=== PATIENT | female | born 1955 | race Caucasian/White ===

== ENCOUNTER → 2024-02-18 07:48 | Outpatient (CLI) | payer MEDICARE, SELFPAY ==
[2024-02-18 08:58] LABS: Add Manual Diff / Slide Review NO; Basophils Absolute Auto 100 /uL (0-100); Basophils Percent Auto 1.4 % (0-2); Eosinophils Absolute Auto 200 /uL (0-450); Eosinophils Percent Auto 5.2 % (2-4); Hematocrit 39.3 % (36-46); Hemoglobin 13.4 g/dL (12.0-16.0); Lymphocytes Absolute Auto 1600 /uL (1100-4500); Lymphocytes Percent Auto 39.7 % (25-40); Mean Corpuscular Hemoglobin 34.1 PG (26-34); Mean Corpuscular Volume 100.2 fL (80-100); Monocytes Absolute Auto 300 /uL (0-900); Neutrophils Absolute Auto 1900 /uL (1500-7000); Neutrophils Percent Auto 46.7 % (50-75); Platelet Count 212 X10^3/uL (150-400); Red Blood Cell Count 3.93 X10^6/uL (4.0-5.2); Red Cell Distribution Width 12.8 % (11.6-14.8)
[2024-02-18 09:21] LABS: Alanine Aminotransferase 15 IU/L (<35); Albumin 3.7 g/dL (3.5-5.0); Albumin Globulin Ratio 1.2 (1.0-2.8); Alkaline Phosphatase 50 U/L (38-126); Aspartate Aminotransferase 29 IU/L (14-36); BUN Creatinine Ratio 15.7 (6-22); Bilirubin Total 0.6 mg/dL (0.2-1.3); Blood Urea Nitrogen 11 mg/dL (7-17); Calcium 9.1 mg/dL (8.4-10.2); Carbon Dioxide 28 mmol/L (22-32); Chloride 108 mmol/L (98-107); Cholesterol 175 mg/dL (140-199); Estimated Glomerular Filt Rate > 60 mL/min (>60); Globulin 3.1 g/dL (1.7-4.1); Glucose 80 mg/dL (80-110); HDL Cholesterol 58 mg/dL (40-60); HEMOLYSIS < 15 (0-50); LDL Cholesterol Calculated 95 mg/dL (<100); Potassium 4.1 mmol/L (3.4-5.1); Sodium 138 mmol/L (137-145); Total Protein 6.8 g/dL (6.3-8.2); Triglycerides 110 mg/dL (35-150)
[2024-02-18 09:39] LABS: Free T3, Triiodothyronine Free 2.98 pg/mL (2.77-5.27); Free T4, Direct Thyroxine 0.99 ng/dL (0.78-2.19)
[2024-02-18 09:53] LABS: Thyroid Stimulating Hormone 2.02 uIU/mL (0.47-4.68)
[2024-02-18 10:16] LABS: Vitamin B12 947 pg/mL (239-931)
[2024-02-23 10:30] LABS: Vitamin B6 51.6 ug/L (3.4-65.2)
== END ==
PROVIDERS: PCP Family Medicine; Referring Provider Family Medicine; Visit Provider Family Medicine
DX: E03.8 Other specified hypothyroidism (principal); E06.3 Autoimmune thyroiditis; E53.1 Pyridoxine deficiency; D51.0 Vitamin B12 deficiency anemia due to intrinsic factor deficiency; E78.5 Hyperlipidemia, unspecified
CPT/HCPCS: 36415; 80053; 80061; 82607; 84207; 84439; 84443; 84481; 85025

== ENCOUNTER → 2024-09-14 09:16 | Outpatient (CLI) | payer MEDICARE, SELFPAY ==
[2024-09-14 12:32] LABS: Alanine Aminotransferase 15 IU/L (<35); Albumin 3.8 g/dL (3.5-5.0); Albumin Globulin Ratio 1.3 (1.0-2.8); Alkaline Phosphatase 67 U/L (38-126); Aspartate Aminotransferase 28 IU/L (14-36); BUN Creatinine Ratio 13.7 (6-22); Bilirubin Total 0.3 mg/dL (0.2-1.3); Blood Urea Nitrogen 10 mg/dL (7-17); Calcium 9.3 mg/dL (8.4-10.2); Carbon Dioxide 30 mmol/L (22-32); Chloride 102 mmol/L (98-107); Estimated Glomerular Filt Rate > 60 mL/min (>60); Globulin 2.9 g/dL (1.7-4.1); Glucose 88 mg/dL (80-110); HEMOLYSIS < 15 (0-50); Potassium 4.3 mmol/L (3.4-5.1); Sodium 136 mmol/L (137-145); Total Protein 6.7 g/dL (6.3-8.2)
[2024-09-14 13:08] LABS: Free T3, Triiodothyronine Free 3.08 pg/mL (2.77-5.27); Free T4, Direct Thyroxine 1.08 ng/dL (0.78-2.19)
== END ==
PROVIDERS: PCP Family Medicine; Referring Provider Family Medicine; Visit Provider Family Medicine
DX: E03.8 Other specified hypothyroidism (principal); E06.3 Autoimmune thyroiditis
CPT/HCPCS: 36415; 80053; 84439; 84443; 84481

== ENCOUNTER 2024-11-10 13:46 | Emergency (ER) | payer MEDICARE, SELFPAY ==
[2024-11-10 13:49] VITALS: BP 122/57; PULSE 76; RESP 16; TEMP 36.7; O2SAT 98; BMI 23.3
--- NOTE | 2024-11-10 13:59 | DI.CT.S_ITS ---
PROCEDURE: CT ANGIO HEAD AND NECK INDICATIONS: decrease B/L upper extrem fine motor, 2 weeks tremors TECHNIQUE: After the administration of intravenous contrast, 1 mm thick sections acquired from the aortic arch through the [place] of [place]. 3-dimensional bhggqsl-uxupbsigh-ehkgpakdiz (MIP) and/or volume rendering reformats were acquired of the central intracranial vasculature and neck separately. For radiation dose reduction, the following was used: automated exposure control, adjustment of mA and/or kV according to patient size. COMPARISON: [facility], CT, CT HEAD/BRAIN WO CON, 11/10/2024, 16:15. FINDINGS: Image quality: Diagnostic. BRAIN: CSF spaces: Ventricles are normal in size and shape. Basal cisterns are patent. No extra-axial fluid collections. Brain: No significant abnormality of the brain can be seen. Skull and face: Calvarium and facial bones appear intact, without suspicious lesions. Orbits appear normal. Sinuses: Sinuses and mastoids are clear. HEAD CT ANGIOGRAPHY: Anterior circulation: Intracranial internal carotid arteries are normal in size and flow. The flow within the paired anterior cerebral arteries is normal and symmetric. The flow within the middle cerebral arteries is normal and symmetric. The anterior communicating artery is seen. No aneurysms are seen. Posterior circulation: Visualized portions of the vertebral arteries demonstrate normal caliber, and join to form a normal appearing basilar artery. Flow within the posterior cerebral arteries is normal and symmetric. No aneurysms are seen. NECK CT ANGIOGRAPHY: Carotid system: The great vessels demonstrate a conventional anatomy as they arise from the aortic arch. The origins of the common carotid arteries appear patent. The common carotid arteries demonstrate normal caliber and courses. The bifurcation regions are both widely patent. The internal carotid arteries demonstrate normal calibers and courses. Posterior circulation: The origins of the vertebral arteries both appear widely patent. The more superior extracranial portions of both vertebral arteries also demonstrate normal courses and calibers. They join to form a normal appearing basilar artery. Soft tissues: Visualized neck soft tissues demonstrate no suspicious abnormalities. Bones: No suspicious bony lesions. Visualized cervical spine appears normally aligned. IMPRESSION: No significant intracranial arterial abnormality is seen. No significant abnormality is seen within the arteries of the neck. Any quantitative measurements of stenosis were performed using NASCET criteria. Dictated by: Fer Drummond M.D. on 11/10/2024 at 17:12 Approved by: Fer Drummond M.D. on 11/10/2024 at 17:14
--- NOTE | 2024-11-10 13:59 | DI.CT.S_ITS ---
PROCEDURE: CT HEAD/BRAIN WO CON INDICATIONS: decrease B/L upper extrem fine motor, 2 weeks tremors TECHNIQUE: Noncontrast 4.5 mm thick angled axial sections acquired from the foramen magnum to the vertex, with coronal and sagittal reformats. For radiation dose reduction, the following was used: automated exposure control, adjustment of mA and/or kV according to patient size. COMPARISON: None. FINDINGS: Image quality: Diagnostic. CSF spaces: Basal cisterns are patent. No extra-axial fluid collections. The ventricles are symmetric in size and shape. Brain: No intracranial bleeds or masses. There is cerebral volume loss for age, with resultant ventricular and sulcal prominence. There are periventricular and deep white matter chronic small vessel ischemic changes. There is intracranial internal carotid artery atherosclerosis. Skull and face: Calvarium and visualized facial bones appear intact, without suspicious lesions. Sinuses: Visualized sinuses and mastoids are clear. IMPRESSION: No acute intracranial pathology. Dictated by: Fer Drummond M.D. on 11/10/2024 at 17:15 Approved by: Fer Drummond M.D. on 11/10/2024 at 17:15
--- NOTE | 2024-11-10 15:26 | ED_ITS ---
HPI - Neuro Symptoms/Deficit <EMILY Hinson Last Filed: 11/10/24 19:25> General Chief Complaint: Neuro Symptoms/Deficit Stated Complaint: sent by [facility] for CT Time Seen by Provider: 11/10/24 15:26 History of Present Illness HPI Narrative: Ms. Miller is a very pleasant 69-year-old female with a past medical history of pernicious anemia, shingles neuropathy, asthma who presents to the emergency department for 2.5 weeks of bilateral hand tremors. Patient states about 2 and half weeks ago she slowly noticed the development of active bilateral hand tremors present when attempting to use fine motor skills while knitting or other tasks. There is no pain or decreased sensation associated with these tremors. She states that earlier this week on Wednesday and Wednesday she did have this sensation of dizziness which she describes as feeling sick and off balance however she states she does have dizziness rather intermittently for a long time. She did have a mild headache during this time as well which is abnormal for her. Both of the symptoms resolved earlier this week. She went to the walk-in clinic who sent her to the ER for further evaluation. She denies visual disturbance, chest pain, shortness of breath, fevers, chills, nausea, vomiting, diarrhea, recent travel, dysuria, hematuria, new medication or other lifestyle change 2.5 weeks ago. She does not use any drugs or alcohol. Her contributes to the history. On Anticoagulants: No Related Data Home Medications Medication Instructions Recorded Confirmed budesonide-formoterol HFA 80 inhalation 11/10/24 11/10/24 mcg-4.5 mcg/actuation aerosol inhaler (Symbicort) levothyroxine 88 mcg tablet mcg PO 11/10/24 11/10/24 liothyronine 5 mcg tablet 5 mcg PO DAILY 11/10/24 11/10/24 raloxifene 60 mg tablet 60 mg PO DAILY 11/10/24 11/10/24 Review of Systems <EMILY Hinson Last Filed: 11/10/24 19:25> Review of Systems ROS Unobtainable: All systems reviewed & are unremarkable except as noted in HPI and below Hematologic/Lymphatic On Anticoagulants: No Exam <Cira Wylie PA-C - Last Filed: 11/10/24 19:25> Narrative Exam Narrative: GENERAL: 69 year old patient appears stated age. Well-developed patient, in no acute distress. HEAD: Atraumatic. Normocephalic. EYES: PERRL. Extraocular motions intact. No scleral icterus. No injection or drainage. ENT: Nose without bleeding, purulent drainage. NECK: Trachea midline. Cervical ROM intact. No pain with range of motion of cervical spine. CARDIOVASCULAR: Regular rate and rhythm. RESPIRATORY: ?Nonlabored respirations. ?Speaking in clear, full sentences. ?Clear to auscultation. Breath sounds equal bilaterally. No wheezes, rales, or rhonchi. ? GASTROINTESTINAL: Abdomen soft, non-tender, nondistended. EXTREMITIES: No edema or joint tenderness. BACK: Nontender without deformity or crepitance. No flank tenderness. NEURO: AOx3. ?Clear speech. ?No focal neurologic deficits. Bilateral hand tremor present only with active use of fine motor skills of both hands such as opening a pill container. Sensation intact throughout face and body and symmetric. Bilateral upper and lower extremity strength intact and symmetric. Yvlmin-oxuh-yorqvy, rapid alternating movements, heel-mariee all normal. Steady gait. SKIN: No rash or erythema of visible areas Initial Vital Signs Initial Vital Signs: Vital Signs Temperature 98.0 F 11/10/24 13:49 Pulse Rate 76 11/10/24 13:49 Respiratory Rate 16 11/10/24 13:49 Blood Pressure 122/57 L 11/10/24 13:49 Pulse Oximetry 98 11/10/24 13:49 Oxygen Delivery Method Room Air 11/10/24 13:49 <Glenn Grover MD - Last Filed: 11/10/24 20:07> Initial Vital Signs Initial Vital Signs: Vital Signs Temperature 98.0 F 11/10/24 13:49 Pulse Rate 76 11/10/24 13:49 Respiratory Rate 16 11/10/24 13:49 Blood Pressure 122/57 L 11/10/24 13:49 Pulse Oximetry 98 11/10/24 13:49 Oxygen Delivery Method Room Air 11/10/24 13:49 Course <Cira Wylie PA-C - Last Filed: 11/10/24 19:25> Orders Ordered: ED Orders 11/10/24 13:59 CT angio head and neck Stat CT head/brain wo con Stat 11/10/24 14:30 Complete Blood Count AUTO DIFF Stat Comprehensive Metabolic Panel Stat Magnesium Stat PTT Partial Thromboplastin [place] Stat Prothrombin Time INR Stat TSH [Thyroid Stimulating Hormone] Stat Vitamin B12 Stat 11/10/24 15:45 Urinalysis and Microscopic Stat Vital Signs Vital signs: Vital Signs - 8 hr 11/10/24 13:49 11/10/24 17:31 11/10/24 18:40 Temperature 98.0 F 98.2 F Pulse Rate 76 67 63 Respiratory Rate 16 16 16 Blood Pressure 122/57 L 108/59 L 105/55 L Pulse Oximetry 98 98 98 Oxygen Delivery Method Room Air Room Air Room Air <Glenn Grover MD - Last Filed: 11/10/24 20:07> Orders Ordered: ED Orders 11/10/24 13:59 CT angio head and neck Stat CT head/brain wo con Stat 11/10/24 14:30 Complete Blood Count AUTO DIFF Stat Comprehensive Metabolic Panel Stat Magnesium Stat PTT Partial Thromboplastin Zen[place] Stat Prothrombin Time INR Stat TSH [Thyroid Stimulating Hormone] Stat Vitamin B12 Stat 11/10/24 15:45 Urinalysis and Microscopic Stat Vital Signs Vital signs: Vital Signs - 8 hr 11/10/24 13:49 11/10/24 17:31 11/10/24 18:40 Temperature 98.0 F 98.2 F Pulse Rate 76 67 63 Respiratory Rate 16 16 16 Blood Pressure 122/57 L 108/59 L 105/55 L Pulse Oximetry 98 98 98 Oxygen Delivery Method Room Air Room Air Room Air MDM - Neuro Symptoms/Deficit <Cira Wylie PA-C - Last Filed: 11/10/24 19:25> Medical Records Attestation: I reviewed the patient's medical records. Lab Data 11/10/24 14:30 11/10/24 14:30 Labs: Lab Results 11/10/24 11/10/24 Range/Units 14:30 15:45 WBC 5.6 (4.5-11.0) X10^3/uL RBC 4.00 (4.0-5.2) X10^6/uL Hgb 13.6 (12.0-16.0) g/dL Hct 40.4 (36-46) % MCV 101.0 H (80-100) fL MCH 34.0 (26-34) PG MCHC 33.7 (30-36) % RDW 12.5 (11.6-14.8) % Plt Count 217 (150-400) X10^3/uL Neut % (Auto) 58.8 (50-75) % Lymph % (Auto) 27.9 (25-40) % [place] % (Auto) 7.6 (3-14) % Eos % (Auto) 4.6 H (2-4) % Baso % (Auto) 1.1 (0-2) % Neut # (Auto) 3300 (0259-5331) /uL Lymph # (Auto) 1600 (5602-5187) /uL [place] # (Auto) 400 (0-900) /uL Eos # (Auto) 300 (0-450) /uL Baso # (Auto) 100 (0-100) /uL PT 11.4 (9.4-12.5) SECONDS INR 1.0 (0.9-1.3) APTT 31 (25.1-36.5) SECONDS Sodium 134 L (137-145) mmol/L Potassium 4.2 (3.4-5.1) mmol/L Chloride 100 (98-107) mmol/L Carbon Dioxide 28 (22-32) mmol/L BUN 14 (7-17) mg/dL Creatinine 0.69 (0.52-1.04) mg/dL Estimated GFR > 60 (>60) mL/min BUN/Creatinine Ratio 20.3 (6-22) Glucose 102 (80-110) mg/dL Calcium 9.3 (8.4-10.2) mg/dL Magnesium 2.1 (1.6-2.3) mg/dL Total Bilirubin 0.3 (0.2-1.3) mg/dL AST 36 (14-36) IU/L ALT 19 (<35) IU/L Alkaline Phosphatase 77 (38-126) U/L Total Protein 7.3 (6.3-8.2) g/dL Albumin 4.2 (3.5-5.0) g/dL Globulin 3.1 (1.7-4.1) g/dL Albumin/Globulin Ratio 1.4 (1.0-2.8) Vitamin B12 880 (239-931) pg/mL TSH 1.46 (0.47-4.68) uIU/mL Urine Color Yellow Urine Appearance Clear Urine pH 8.0 (4.5-8.0) Ur Specific [place] 1.010 (1.000-1.035) Urine Protein Negative (Negative) Urine Glucose (UA) Negative (Negative) g/dL Urine Ketones Negative (NEGATIVE) Urine Occult Blood Negative (Negative) Urine Nitrate Negative (Negative) Urine Bilirubin Negative (NEGATIVE) Urine Urobilinogen 0.2 (0.2) E.U./dL Ur Leukocyte Esterase Negative (NEGATIVE) Urine RBC None seen (0-5/HPF) Urine WBC None seen (0-5/HPF) Ur Squamous Epith Cells None seen (0-5/HPF) Amorphous Sediment 1+ Urine Bacteria None seen (None) Ur Culture Indicated? Cult not indicated Vol Urine Centrifuged 10ml (spun) Imaging Data CT scan - head: Radiologist's Impression: PROCEDURE: CT HEAD/BRAIN WO CON INDICATIONS: decrease B/L upper extrem fine motor, 2 weeks tremors TECHNIQUE: Noncontrast 4.5 mm thick angled axial sections acquired from the foramen magnum to the vertex, with coronal and sagittal reformats. For radiation dose reduction, the following was used: automated exposure control, adjustment of mA and/or kV according to patient size. COMPARISON: None. FINDINGS: Image quality: Diagnostic. CSF spaces: Basal cisterns are patent. No extra-axial fluid collections. The ventricles are symmetric in size and shape. Brain: No intracranial bleeds or masses. There is cerebral volume loss for age, with resultant ventricular and sulcal prominence. There are periventricular and deep white matter chronic small vessel ischemic changes. There is intracranial internal carotid artery atherosclerosis. Skull and face: Calvarium and visualized facial bones appear intact, without suspicious lesions. Sinuses: Visualized sinuses and mastoids are clear. IMPRESSION: No acute intracranial pathology. Head/Neck CTA: Radiologist's Impression: PROCEDURE: CT ANGIO HEAD AND NECK INDICATIONS: decrease B/L upper extrem fine motor, 2 weeks tremors TECHNIQUE: After the administration of intravenous contrast, 1 mm thick sections acquired from the aortic arch through the [place] of [place]. 3-dimensional qfbcqaw-cmgnlthzj-brlislklyt (MIP) and/or volume rendering reformats were acquired of the central intracranial vasculature and neck separately. For radiation dose reduction, the following was used: automated exposure control, adjustment of mA and/or kV according to patient size. COMPARISON: [facility], CT, CT HEAD/BRAIN WO CON, 11/10/2024, 16:15. FINDINGS: Image quality: Diagnostic. BRAIN: CSF spaces: Ventricles are normal in size and shape. Basal cisterns are patent. No extra-axial fluid collections. Brain: No significant abnormality of the brain can be seen. Skull and face: Calvarium and facial bones appear intact, without suspicious lesions. Orbits appear normal. Sinuses: Sinuses and mastoids are clear. HEAD CT ANGIOGRAPHY: Anterior circulation: Intracranial internal carotid arteries are normal in size and flow. The flow within the paired anterior cerebral arteries is normal and symmetric. The flow within the middle cerebral arteries is normal and symmetric. The anterior communicating artery is seen. No aneurysms are seen. Posterior circulation: Visualized portions of the vertebral arteries demonstrate normal caliber, and join to form a normal appearing basilar artery. Flow within the posterior cerebral arteries is normal and symmetric. No aneurysms are seen. NECK CT ANGIOGRAPHY: Carotid system: The great vessels demonstrate a conventional anatomy as they arise from the aortic arch. The origins of the common carotid arteries appear patent. The common carotid arteries demonstrate normal caliber and courses. The bifurcation regions are both widely patent. The internal carotid arteries demonstrate normal calibers and courses. Posterior circulation: The origins of the vertebral arteries both appear widely patent. The more superior extracranial portions of both vertebral arteries also demonstrate normal courses and calibers. They join to form a normal appearing basilar artery. Soft tissues: Visualized neck soft tissues demonstrate no suspicious abnormalities. Bones: No suspicious bony lesions. Visualized cervical spine appears normally aligned. IMPRESSION: No significant intracranial arterial abnormality is seen. No significant abnormality is seen within the arteries of the neck. [facility] Narrative Medical decision making narrative: 69-year-old female with a past medical history of pernicious anemia, shingles neuropathy, asthma who presents to the emergency department for 2.5 weeks of bilateral hand tremors. Her contributes to the history. Differential diagnosis includes but is not limited to essential tremor, electrolyte abnormality, anemia, neuropathy, Parkinson's disease, neurologic disease, intracranial mass, etc. On exam the patient is in no acute distress, nontoxic appearing, vital signs appropriate. She is very pleasant and denies any pain. She has mild tremor of bilateral hands only with active use of hands/fine motor skills. This has been going on for about 2 and half weeks. She has no focal neurologic deficits, steady gait, negative cerebellar exam. Case was discussed with the attending physician. We will obtain CT head without contrast and CTA head and neck with IV contrast to rule out acute intracranial abnormality. We will check baseline labs to rule out electrolyte abnormality, UTI, etc. Labs reveal normal WBC count 5.6, hemoglobin 13.6 hematocrit 40.4. Sodium mildly decreased at 134, potassium 4.2 chloride 100. BUN 14 creatinine 0.69. Vitamin B12 normal at 880. Head CT shows no acute intracranial pathology. Head/neck CTA reveals no significant intracranial arterial abnormality. No significant abnormality seen with the arteries of the neck. Advised patient follow up with outpatient Neurology for further evaluation of hand tremor. No emergent etiology identified at this time. Case discussed with the attending ER physician who was available for consultation. Patient verbalized understanding of all information and is agreeable to the plan. Advised prompt follow up with PCP as she may need Neurology referral. Patient her verbalized understanding of all information and are stable for discharge home. Return precautions discussed. <Glenn Grover MD - Last Filed: 11/10/24 20:07> Lab Data Labs: Lab Results 11/10/24 11/10/24 Range/Units 14:30 15:45 WBC 5.6 (4.5-11.0) X10^3/uL RBC 4.00 (4.0-5.2) X10^6/uL Hgb 13.6 (12.0-16.0) g/dL Hct 40.4 (36-46) % MCV 101.0 H (80-100) fL MCH 34.0 (26-34) PG MCHC 33.7 (30-36) % RDW 12.5 (11.6-14.8) % Plt Count 217 (150-400) X10^3/uL Neut % (Auto) 58.8 (50-75) % Lymph % (Auto) 27.9 (25-40) % [place] % (Auto) 7.6 (3-14) % Eos % (Auto) 4.6 H (2-4) % Baso % (Auto) 1.1 (0-2) % Neut # (Auto) 3300 (3491-5977) /uL Lymph # (Auto) 1600 (5697-4549) /uL [place] # (Auto) 400 (0-900) /uL Eos # (Auto) 300 (0-450) /uL Baso # (Auto) 100 (0-100) /uL PT 11.4 (9.4-12.5) SECONDS INR 1.0 (0.9-1.3) APTT 31 (25.1-36.5) SECONDS Sodium 134 L (137-145) mmol/L Potassium 4.2 (3.4-5.1) mmol/L Chloride 100 (98-107) mmol/L Carbon Dioxide 28 (22-32) mmol/L BUN 14 (7-17) mg/dL Creatinine 0.69 (0.52-1.04) mg/dL Estimated GFR > 60 (>60) mL/min BUN/Creatinine Ratio 20.3 (6-22) Glucose 102 (80-110) mg/dL Calcium 9.3 (8.4-10.2) mg/dL Magnesium 2.1 (1.6-2.3) mg/dL Total Bilirubin 0.3 (0.2-1.3) mg/dL AST 36 (14-36) IU/L ALT 19 (<35) IU/L Alkaline Phosphatase 77 (38-126) U/L Total Protein 7.3 (6.3-8.2) g/dL Albumin 4.2 (3.5-5.0) g/dL Globulin 3.1 (1.7-4.1) g/dL Albumin/Globulin Ratio 1.4 (1.0-2.8) Vitamin B12 880 (239-931) pg/mL TSH 1.46 (0.47-4.68) uIU/mL Urine Color Yellow Urine Appearance Clear Urine pH 8.0 (4.5-8.0) Ur Specific [place] 1.010 (1.000-1.035) Urine Protein Negative (Negative) Urine Glucose (UA) Negative (Negative) g/dL Urine Ketones Negative (NEGATIVE) Urine Occult Blood Negative (Negative) Urine Nitrate Negative (Negative) Urine Bilirubin Negative (NEGATIVE) Urine Urobilinogen 0.2 (0.2) E.U./dL Ur Leukocyte Esterase Negative (NEGATIVE) Urine RBC None seen (0-5/HPF) Urine WBC None seen (0-5/HPF) Ur Squamous Epith Cells None seen (0-5/HPF) Amorphous Sediment 1+ Urine Bacteria None seen (None) Ur Culture Indicated? Cult not indicated Vol Urine Centrifuged 10ml (spun) Discharge Plan Departure Patient Disposition: Home Clinical Impression: Tremor of both hands Instructions: DI for Benign Essential Tremor Activity Restrictions/Additional Instructions: Dear Ms. Miller, Today you were evaluated for a tremor of both of your hands for the last 2.5 weeks. Labs overall reassuring with no anemia, no abnormal electrolytes, and CT imaging of your head and head and neck vessels show no acute emergent abnormalities. Please follow up with a neurologist for further evaluation. You may call [facility] at [phone] the schedule an appointment with a neurologist. I have provided you with patient information on benign essential tremor however this is not your official diagnosis, this is just for information. You need to be formally evaluated and diagnosed by a neurologist for the cause of your hand tremor. Please follow up with your primary care doctor within the next 2-3 days for ER follow-up. (If you do not have a PCP you can call [phone]. ?to schedule an appointment with an [facility] Primary Care Provider) IF YOU DEVELOP ANY NEW OR WORSENING SYMPTOMS, RETURN TO THE ER! Please read the attached instructions, they highlight more specific treatments and interventions for you at home. Thank you for letting me participate in your care, Cira Wylie PA-C Prescriptions: No Action levothyroxine 88 mcg tablet PO liothyronine 5 mcg tablet 5 mcg PO DAILY raloxifene 60 mg tablet 60 mg PO DAILY budesonide-formoterol [Symbicort] 80-4.5 mcg/actuation HFA aerosol inhaler inhalation Referrals: Deann Concepcion MD [Primary Care Provider] - Stand Alone Forms: Patient Portal/API/Survey ED Sign-out <Glenn Grover MD - Last Filed: 11/10/24 20:07> Cosign ED Attending Klaus Attestation: I was immediately available in the department for consultation. This documentation has been reviewed and I agree with assessment and plan. Supervised by Glenn Grover MD
[2024-11-10 15:53] LABS: Add Manual Diff / Slide Review NO; Basophils Absolute Auto 100 /uL (0-100); Basophils Percent Auto 1.1 % (0-2); Eosinophils Absolute Auto 300 /uL (0-450); Eosinophils Percent Auto 4.6 % (2-4); Hematocrit 40.4 % (36-46); Hemoglobin 13.6 g/dL (12.0-16.0); Lymphocytes Absolute Auto 1600 /uL (1100-4500); Lymphocytes Percent Auto 27.9 % (25-40); Mean Corpuscular HGB Conc 33.7 % (30-36); Monocytes Absolute Auto 400 /uL (0-900); Monocytes Percent Auto 7.6 % (3-14); Neutrophils Absolute Auto 3300 /uL (1500-7000); Neutrophils Percent Auto 58.8 % (50-75); Platelet Count 217 X10^3/uL (150-400); Red Cell Distribution Width 12.5 % (11.6-14.8); White Blood Cell Count 5.6 X10^3/uL (4.5-11.0)
[2024-11-10 15:54] LABS: Prothrombin Time 11.4 SECONDS (9.4-12.5)
[2024-11-10 15:56] LABS: PTT Partial Thromboplastin Tim 31 SECONDS (25.1-36.5)
[2024-11-10 16:07] LABS: Alanine Aminotransferase 19 IU/L (<35); Albumin 4.2 g/dL (3.5-5.0); Albumin Globulin Ratio 1.4 (1.0-2.8); Alkaline Phosphatase 77 U/L (38-126); Aspartate Aminotransferase 36 IU/L (14-36); BUN Creatinine Ratio 20.3 (6-22); Bilirubin Total 0.3 mg/dL (0.2-1.3); Blood Urea Nitrogen 14 mg/dL (7-17); Calcium 9.3 mg/dL (8.4-10.2); Carbon Dioxide 28 mmol/L (22-32); Chloride 100 mmol/L (98-107); Estimated Glomerular Filt Rate > 60 mL/min (>60); Globulin 3.1 g/dL (1.7-4.1); Glucose 102 mg/dL (80-110); HEMOLYSIS < 15 (0-50); Magnesium 2.1 mg/dL (1.6-2.3); Potassium 4.2 mmol/L (3.4-5.1); Sodium 134 mmol/L (137-145); Total Protein 7.3 g/dL (6.3-8.2)
[2024-11-10 16:39] LABS: Thyroid Stimulating Hormone 1.46 uIU/mL (0.47-4.68)
[2024-11-10 16:57] LABS: Vitamin B12 880 pg/mL (239-931)
[2024-11-10 17:31] VITALS: BP 108/59; PULSE 67; RESP 16; TEMP 36.8; O2SAT 98
[2024-11-10 17:44] LABS: Appearance Urine UA CLEAR; Bilirubin Urine UA NEGATIVE (NEGATIVE); Color Urine UA YELLOW; Glucose Urine UA NEGATIVE (Negative); Ketones Urine UA NEGATIVE (NEGATIVE); Leukocyte Esterase Urine UA NEGATIVE (NEGATIVE); Nitrite Urine UA NEGATIVE (Negative); Occult Blood Urine UA NEGATIVE (Negative); Protein Urine UA NEGATIVE (Negative); Urobilinogen Urine UA 0.2 E.U./dL (0.2)
[2024-11-10 18:23] LABS: Amorphous Sediment Urine 1+; Bacteria Urine None Seen; Culture Indicated Urine Cult Not Indicated; RBC Urine None Seen (0-5/HPF); Squamous Epithelial Cell Urine None Seen (0-5/HPF); Urine Volume 10mL (spun); WBC Urine None Seen (0-5/HPF)
[2024-11-10 18:40] VITALS: BP 105/55; PULSE 63; RESP 16; O2SAT 98
== END 2024-11-10 18:40 | disposition home or self-care (01) ==
PROVIDERS: Emergency Provider Physician Assistant; PCP Family Medicine
DX: R25.1 Tremor, unspecified (principal); R42 Dizziness and giddiness; R51.9 Headache, unspecified
CPT/HCPCS: 36415; 70450; 70496; 70498; 80053; 81001; 82607; 83735; 84443; 85025; 85610; 85730; 99283; 99284; Q9967

== ENCOUNTER → 2025-02-01 13:03 | Outpatient (CLI) | payer MEDICARE, SELFPAY ==
--- NOTE | 2025-02-01 13:08 | DI.RAD.S_ITS ---
PROCEDURE: XR DEXA AXIAL SKELETON INDICATIONS: osteoporosis dx COMPARISON: None. FINDINGS: Lumbar Spine: Bone mineral density 0.731 g/cm2, T score -2.9. Left Femoral Neck: Bone mineral density 0.577 g/cm2, T score -2.5. Left Hip: Bone mineral density is 0.739 g/cm2, T score -1.7. Fracture Risk Calculation (when applicable): FRAX score not reported due to T-score less than -2.5. (T score greater or equal to -1.0 to: NORMAL) (T score from -1.1 to -2.4: OSTEOPENIA) (T score less than or equal to -2.5: OSTEOPOROSIS) IMPRESSION: By WHO criteria, patient has osteoporosis. Follow-up guidelines as follows: Osteoporosis: Consider a repeat DEXA and Vertebral Fracture Assessment (VFA) exam in 2 years or sooner if medically necessary, to reassess this patient's status. Osteopenia: Consider a repeat DEXA in 2-3 years to reassess this patient's status, or if there is a new clinical indication. Normal: Consider a repeat DEXA in 5 years or sooner, or if there is a new clinical indication. All treatment decisions require clinical judgment and consideration of individual patient factors, including patient preferences, comorbidities, previous drug use, risk factors not captured in the FRAX model (e.g., frailty, falls, vitamin D deficiency, increased bone turnover, interval significant decline in bone density ) and possible under- or over-estimation of fracture risk by FRAX. In addition, the NOF Guide recommends that FDA-approved medical therapies be considered in postmenopausal women and men age >= 50 years with a: * Hip or vertebral (clinical or morphometric) fracture * T-score of <=-2.5 at the spine or hip * Ten-year fracture probability by FRAX of >= 3% for hip fracture or >=20% for major osteoporotic fracture. Approved by: Anderson Reyes M.D. on 02/01/2025 at 21:13
== END ==
LOC: RAD 13:06
PROVIDERS: PCP Family Medicine; Referring Provider Family Medicine; Visit Provider Family Medicine
DX: M81.0 Age-related osteoporosis without current pathological fracture (principal)
CPT/HCPCS: 77080

== ENCOUNTER 2025-05-04 15:21 | Emergency (ER) | payer MEDICARE, SELFPAY ==
[2025-05-04] VITALS (9 sets, daily range): BP systolic 112–145; BP diastolic 56–82; PULSE 62–77; RESP 10–97; TEMP 36.4; O2SAT 96–100; BMI 23.6
--- NOTE | 2025-05-04 15:30 | DI.RAD.S_ITS ---
PROCEDURE: XR CHEST 1V INDICATIONS: Chest Pain TECHNIQUE: One view of the chest was acquired. COMPARISON: None. FINDINGS: Surgical changes and devices: None. Lungs and pleura: Lungs are clear. No pleural effusions or pneumothorax. Mediastinum: The cardiac contours are within normal limits. The aorta demonstrates calcification and tortuosity. Bones and chest wall: No suspicious bony lesions. Overlying soft tissues appear unremarkable. IMPRESSION: No acute cardiopulmonary abnormality is seen. Dictated by: Mohamud Lopez M.D. on 05/04/2025 at 14:52 Approved by: Mohamud Lopez M.D. on 05/04/2025 at 14:53
--- NOTE | 2025-05-04 15:30 | EKG_ITS ---
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
[2025-05-04 16:13] LABS: Add Manual Diff / Slide Review NO; Basophils Absolute Auto 100 /uL (0-100); Eosinophils Absolute Auto 200 /uL (0-450); Eosinophils Percent Auto 4.4 % (2-4); Hematocrit 38.5 % (36-46); Hemoglobin 13.3 g/dL (12.0-16.0); Lymphocytes Absolute Auto 1600 /uL (1100-4500); Lymphocytes Percent Auto 29.7 % (25-40); Mean Corpuscular HGB Conc 34.6 % (30-36); Mean Corpuscular Volume 101.1 fL (80-100); Monocytes Absolute Auto 500 /uL (0-900); Monocytes Percent Auto 9.3 % (3-14); Neutrophils Absolute Auto 3000 /uL (1500-7000); Neutrophils Percent Auto 55.6 % (50-75); Platelet Count 202 X10^3/uL (150-400); Red Cell Distribution Width 12.4 % (11.6-14.8); White Blood Cell Count 5.4 X10^3/uL (4.5-11.0)
[2025-05-04 16:21] LABS: PTT Partial Thromboplastin Tim 30 SECONDS (25.1-36.5)
[2025-05-04 16:23] LABS: Alanine Aminotransferase 16 IU/L (<35); Albumin 4.2 g/dL (3.5-5.0); Albumin Globulin Ratio 1.4 (1.0-2.8); Alkaline Phosphatase 67 U/L (38-126); Aspartate Aminotransferase 29 IU/L (14-36); Bilirubin Total 0.3 mg/dL (0.2-1.3); Blood Urea Nitrogen 17 mg/dL (7-17); Calcium 9.1 mg/dL (8.4-10.2); Carbon Dioxide 25 mmol/L (22-32); Chloride 101 mmol/L (98-107); Creatine Kinase 30 U/L (30-135); Estimated Glomerular Filt Rate > 60 mL/min (>60); Globulin 2.9 g/dL (1.7-4.1); Glucose 89 mg/dL (70-99); HEMOLYSIS 15 (0-50); Lipase 233 U/L (23-300); Magnesium 2.2 mg/dL (1.6-2.3); Potassium 4.1 mmol/L (3.4-5.1); Sodium 133 mmol/L (137-145); Total Protein 7.1 g/dL (6.3-8.2)
[2025-05-04 16:35] LABS: NT-proBNP (BNP-Adult 18+) 224 pg/mL (<125); Troponin I < 0.012 ng/mL (0.01-0.034)
--- NOTE | 2025-05-04 17:18 | ED.CHESTPAIN ---
HPI - Chest Pain General Chief Complaint: Chest Pain Stated Complaint: pcp ref, chest painx1 week Time Seen by Provider: 05/04/25 17:12 Source: patient, RN notes reviewed and old records reviewed Mode of arrival: Ambulatory Limitations: no limitations History of Present Illness HPI narrative: 70-year-old female history of pernicious anemia, hypothyroidism, shingles starting at age 8 who presents with complaint of left-sided pain on her chest along the ribcage from the back wrapping around to the front for the past week. Patient states she was has a history of shingles had episodes starting when she was 8, developed neuropathy states it usually sort of waxes and wanes in intensity but states over the past week it has been steady. It has been in the same location has not changed is similar characterization. Patient has not had any other rash or skin changes. No trauma or other changes. She states he takes acetaminophen 500 mg once daily for pain but has not been useful. States no fevers or chills. No shortness of breath. No cold cough or congestion symptoms. Has a little bit of nausea at the beginning of the week but no longer. No vomiting. No issues with bowel movements. Reports chronic urinary frequency but no other new changes. States she takes a medication for hypothyroidism, a multi B vitamin, magnesium and potassium, uses an inhaler intermittently, vitamin-E, role of vaccine, calcium Mag and zinc as well as vitamin-D but no other prescription medications. Had prior urinary cyst removed before she turned the age of 8 and this is about when she developed shingles as well. No tobacco, no alcohol, no recreational drugs. Related Data Home Medications ?Medication ?Instructions ?Recorded ?Confirmed budesonide-formoterol HFA 80 2 puff inhalation BID 03/19/25 03/19/25 mcg-4.5 mcg/actuation aerosol inhaler (Symbicort) Previous Rx's ?Medication ?Instructions ?Recorded levothyroxine 88 mcg tablet 44 mcg (1/2 x 88 mcg) PO DAILY #45 01/24/25 tabs liothyronine 5 mcg tablet 5 mcg PO DAILY #90 tabs 01/24/25 albuterol sulfate 90 mcg/actuation 2 inh inhalation Q6H PRN SOB #1 ea 02/13/25 breath activated powder inhaler raloxifene 60 mg tablet 60 mg PO DAILY #30 tabs 03/19/25 gabapentin 100 mg capsule 100 mg PO TID #60 caps 05/04/25 (Neurontin) Allergies Allergy/AdvReac Type Severity Reaction Status Date / Time No Known Drug Allergies Allergy Verified 05/04/25 15:24 Review of Systems Review of Systems ROS Unobtainable: All systems reviewed & are unremarkable except as noted in HPI and below Patient History Medical History Panic attacks Vegetarian diet Postherpetic neuralgia Asthma (~2023) Shingles (~1962) Peripheral neuropathy (~1999) Osteoporosis (~2016) Chicken pox Anemia (~1999) Thyroid condition (~2002) Surgical History Anesthesia History of tonsillectomy (~1962) Urinary tract tumor Family History Father Congestive heart failure Mother History of heart disease Grandmother Cancer Social History Smoking Status: Never smoker Smoking Status: Never smoker Exam Narrative Exam Narrative: GENERAL: Alert and oriented x three, female in mild distress HEENT: Head normocephalic, atraumatic, EOMI, pupils reactive, face symmetric, moist mucous membranes NECK: Supple, full range of motion CARDIOVASCULAR: Regular rate and rhythm without murmurs, rubs or gallops. Nontender over the chest wall, no erythema no rash no skin changes. RESPIRATORY: Breath sounds equal bilaterally, no wheezes rales or rhonchi. ABDOMEN: Soft, nontender. Normoactive bowel sounds all 4 quadrants. No guarding or rebound, rigidity, no mass : No CVA tenderness EXTREMITIES: Normal range of motion, no clubbing or edema. Neurovascularly intact NEUROLOGICAL: Cranial nerves II through XII grossly intact. Moving all extremities SKIN: Warm, dry, no petechiae, no rashes or lesions. Initial Vital Signs Initial Vital Signs: Vital Signs Temperature 97.6 F 05/04/25 15:22 Pulse Rate 77 05/04/25 15:22 Respiratory Rate 97 H 05/04/25 15:22 Blood Pressure 145/63 H 05/04/25 15:22 Pulse Oximetry 100 05/04/25 15:22 Oxygen Delivery Method Room Air 05/04/25 15:22 Course Orders Ordered: Discontinued Medications Aspirin (Aspirin 81 Mg Chew Tab) 324 mg PO NOW ONE Stop: 05/04/25 15:30 Vital Signs Vital signs: Vital Signs - 8 hr 05/04/25 15:22 05/04/25 15:35 05/04/25 15:38 Temperature 97.6 F Pulse Rate 77 74 Respiratory Rate 97 H Blood Pressure 145/63 H 112/82 Pulse Oximetry 100 97 Oxygen Delivery Method Room Air 05/04/25 16:00 05/04/25 16:00 05/04/25 16:30 Temperature Pulse Rate 69 66 Respiratory Rate 10 L 18 Blood Pressure 118/56 L Pulse Oximetry 96 96 Oxygen Delivery Method Room Air 05/04/25 16:30 05/04/25 17:00 05/04/25 17:00 Temperature Pulse Rate 66 Respiratory Rate 13 Blood Pressure 113/65 113/59 L Pulse Oximetry 96 Oxygen Delivery Method 05/04/25 17:30 05/04/25 17:30 Temperature Pulse Rate 62 Respiratory Rate 23 Blood Pressure 119/64 Pulse Oximetry 97 Oxygen Delivery Method Room Air MDM - Chest Pain Lab Data 05/04/25 15:54 05/04/25 15:54 Labs: Lab Results 05/04/25 Range/Units 15:54 WBC 5.4 (4.5-11.0) X10^3/uL RBC 3.80 L (4.0-5.2) X10^6/uL Hgb 13.3 (12.0-16.0) g/dL Hct 38.5 (36-46) % MCV 101.1 H (80-100) fL MCH 35.0 H (26-34) PG MCHC 34.6 (30-36) % RDW 12.4 (11.6-14.8) % Plt Count 202 (150-400) X10^3/uL Neut % (Auto) 55.6 (50-75) % Lymph % (Auto) 29.7 (25-40) % [place] % (Auto) 9.3 (3-14) % Eos % (Auto) 4.4 H (2-4) % Baso % (Auto) 1.0 (0-2) % Neut # (Auto) 3000 (4521-4701) /uL Lymph # (Auto) 1600 (1792-3953) /uL [place] # (Auto) 500 (0-900) /uL Eos # (Auto) 200 (0-450) /uL Baso # (Auto) 100 (0-100) /uL PT 11.0 (9.4-12.5) SECONDS INR 1.0 (0.9-1.3) APTT 30 (25.1-36.5) SECONDS Sodium 133 L (137-145) mmol/L Potassium 4.1 (3.4-5.1) mmol/L Chloride 101 (98-107) mmol/L Carbon Dioxide 25 (22-32) mmol/L BUN 17 (7-17) mg/dL Creatinine 0.68 (0.52-1.04) mg/dL Estimated GFR > 60 (>60) mL/min BUN/Creatinine Ratio 25.0 H (6-22) Glucose 89 (70-99) mg/dL Calcium 9.1 (8.4-10.2) mg/dL Magnesium 2.2 (1.6-2.3) mg/dL Total Bilirubin 0.3 (0.2-1.3) mg/dL AST 29 (14-36) IU/L ALT 16 (<35) IU/L Alkaline Phosphatase 67 (38-126) U/L Total Creatine Kinase 30 (30-135) U/L Troponin I < 0.012 (0.01-0.034) ng/mL NT-Pro-B Natriuret Pep 224 H (<125) pg/mL Total Protein 7.1 (6.3-8.2) g/dL Albumin 4.2 (3.5-5.0) g/dL Globulin 2.9 (1.7-4.1) g/dL Albumin/Globulin Ratio 1.4 (1.0-2.8) Lipase 233 (23-300) U/L ECG Data Attestation: I personally reviewed and interpreted this ECG as follows: Prior ECG tracings: not available for review Interpretation: Sinus rhythm rate of 71 OH 140 QRS 82 QTC of 419 nonspecific change. No prior for comparison. CBC shows normal white count, hemoglobin of 13 platelets of 202, coags are negative sodium is 133 electrolytes are appropriate BUN creatinine are normal LFTs are negative troponins less than 0.012 with a BNP of 224 and a lipase of 223. Chest x-ray shows no acute change. Aorta does demonstrate calcification and tortuosity. MDM Narrative Medical decision making narrative: 70-year-old female who presents with complaint of persistent neuropathic pain over the left chest wall hit her usual location where she was had issues in the past but has been more persistent rather than waxing and waning which is her typical pattern. She states otherwise it was the same. Her usual methods of Tylenol, relaxation and massage have not been helpful. She contacted primary care who told her to come to the emergency department. Workup shows normal labs, negative chest x-ray with no acute EKG changes. Patient's symptoms have been constant without any other change. Discussed with the patient she was never tried Neurontin or a similar medication so we will recommend to increase her Tylenol if tolerated as well as Neurontin to see if this is helpful for her symptoms. She has follow up on the 16 of May with primary care and if helpful they can either titrate or continue. Discharge Plan Departure Patient Disposition: Home Clinical Impression: Postherpetic neuralgia Activity Restrictions/Additional Instructions: Please follow up with your primary care physician. You can take neurontin 1 tablet every 8 hours for pain this medication is usually most helpful when taken regularly. It can be titrated upwards if it is mildly helpful but not fully helpful. You can also take acetaminophen a 1000 mg every 6 hours as needed for pain with this medication. Please return for new chest pain, shortness of breath, fevers, lightheadedness or passing out or other new or concerning changes. Prescriptions: New gabapentin [Neurontin] 100 mg capsule 100 mg PO TID Qty: 60 0RF No Action raloxifene 60 mg tablet 60 mg PO DAILY Qty: 30 3RF budesonide-formoterol [Symbicort] 80-4.5 mcg/actuation HFA aerosol inhaler 2 puff inhalation BID levothyroxine 88 mcg tablet 44 mcg PO DAILY Qty: 45 3RF liothyronine 5 mcg tablet 5 mcg PO DAILY Qty: 90 0RF albuterol sulfate 90 mcg/actuation aerosol powdr breath activated 2 inh inhalation Q6H PRN (Reason: SOB) Qty: 1 0RF Referrals: Carlee Vasquez MD [Primary Care Provider, Family Practice] Stand Alone Forms: Patient Portal/API
== END 2025-05-04 18:44 | disposition home or self-care (01) ==
PROVIDERS: Emergency Provider Emergency Medicine; PCP Family Medicine
DX: B02.29 Other postherpetic nervous system involvement (principal); R07.9 Chest pain, unspecified
CPT/HCPCS: 36415; 71045; 80053; 82550; 83690; 83735; 83880; 84484; 85025; 85610; 85730; 93005; 93010; 99283; 99284

== ENCOUNTER → 2025-06-07 09:27 | Outpatient (CLI) | payer MEDICARE, SELFPAY ==
[2025-06-07 12:13] LABS: Influenza A - CEPHEID Flu A NEGATIVE (NEGATIVE); Influenza B - CEPHEID Flu B NEGATIVE (NEGATIVE)
[2025-06-07 12:15] LABS: COVID-19 CEPHEID 4-PLEX PCR Negative (Negative)
== END ==
PROVIDERS: PCP Family Medicine; Visit Provider Student in an Organized Health Care Education/Training Program
DX: R05.1 Acute cough (principal)
CPT/HCPCS: 87637

== ENCOUNTER → 2025-06-07 10:04 | Outpatient (CLI) | payer MEDICARE, SELFPAY ==
--- NOTE | 2025-06-07 10:05 | DI.RAD.S_ITS ---
PROCEDURE: XR CHEST 2V INDICATIONS: cough 3 wk worse last 6 days/asthma hx TECHNIQUE: 2 views of the chest were acquired. COMPARISON: [facility], CR, XR CHEST 1V, 05/04/2025, 15:29. FINDINGS: Surgical changes and devices: None. Lungs and pleura: Lungs are clear. No pleural effusions or pneumothorax. Mediastinum: Mediastinal contours are normal. Heart size is normal. Bones and chest wall: No suspicious bony abnormalities. Soft tissues appear unremarkable. IMPRESSION: No acute cardiopulmonary abnormality is seen. Dictated by: Aries Up M.D. on 06/07/2025 at 10:28 Approved by: Aries Up M.D. on 06/07/2025 at 10:28
== END ==
PROVIDERS: PCP Family Medicine; Referring Provider Student in an Organized Health Care Education/Training Program; Visit Provider Student in an Organized Health Care Education/Training Program
DX: R05.8 Other specified cough (principal); R05.1 Acute cough
CPT/HCPCS: 71046; 87637

== ENCOUNTER → 2025-09-12 17:05 | Outpatient (CLI) | payer MEDICARE, SELFPAY ==
--- NOTE | 2025-09-12 17:06 | DI.MG.S_ITS ---
MM screening mammo BI: 09/12/2025. BI-RADS: 1 CLINICAL: 70-year old female for bilateral screening mammogram. Tyrer-Cuzick lifetime risk of 4.8%. No personal or first-degree family history of breast cancer. PRIOR EXAMS: 08/30/24, 08/20/23, 05/26/22. MAMMOGRAPHY TECHNIQUE: 2D and 3D (tomosynthesis) digital mammographic views obtained, with additional images as needed for full coverage. Current study was also evaluated with a Computer Aided Detection (CAD) system. DENSITY C. The breasts are heterogeneously dense, which may obscure small masses. MAMMOGRAPHY FINDINGS Bilateral: No suspicious mass, asymmetry, microcalcification, or other abnormality seen. IMPRESSION: * No evidence of malignancy. RECOMMENDATIONS Bilateral * Annual screening mammography. OVERALL ASSESSMENT CATEGORY BI-RADS-1: Negative. [employer] recommends annual screening mammography beginning at age 40 for women with average risk of breast cancer. ELECTRONICALLY SIGNED: Chalino Dai M.D. on 09/13/2025 at 10:23:33 AM PT Interpreting Station ID: [id number]
== END ==
LOC: MAMMO 17:05
PROVIDERS: PCP Family Medicine; Referring Provider Family Medicine; Visit Provider Family Medicine
DX: Z12.31 Encounter for screening mammogram for malignant neoplasm of breast (principal); R92.333 Mammographic heterogeneous density, bilateral breasts
CPT/HCPCS: 77063; 77067